=== PATIENT | male | born 1990 | race Caucasian/White ===

== ENCOUNTER 2016-12-29 09:28 | Emergency (ER) | payer MEDICAID, OTHER ==
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
[~2016-12-29 09:28] MED LIST: ATOR20TA PO; BENZ0.5T3 PO; CLOZ50TA PO; DOCU100T2 PO; FLUO20CA25 PO; HAL5 PO; LITH600C PO; PROP60CA8 PO
[2016-12-29 09:30] VITALS: BP 127/81; PULSE 66; RESP 20; O2SAT 100
[2016-12-29 09:40] VITALS: BP 127/81; PULSE 66; RESP 20; O2SAT 99
[2016-12-29 12:39] LABS: BASOPHILS % (AUTO) 0.2 % (0-3); EOSINOPHILS % (AUTO) 1.5 % (0-5); MONOCYTES % (AUTO) 7.2 % (4-12); Mean Corpuscular Hemoglobin 29.9 pg (27.0-35.0); Mean Corpuscular Volume 87.5 fL (81-100); Platelet Count 293 bil/L (150-400)
[2016-12-29] MEDS ORDERED: LORazepam 2 mg Tablet PO ONE (15:50)
[2016-12-29] MEDS ORDERED: Haloperidol 5 mg/mL Inj IVPUSH ONE (15:50)
[2016-12-29 18:06] VITALS: BP 133/85; PULSE 80; RESP 16; O2SAT 100
[2016-12-29] MEDS ORDERED: LITH300T2 PO (18:16)
[2016-12-29] MEDS ORDERED: BENZ1TAB7 PO (18:16)
[2016-12-29] MEDS ORDERED: CLOZ200T PO (18:16)
[2016-12-29] MEDS ORDERED: OMEG-38 PO (18:16)
[2016-12-29] MEDS ORDERED: PALI6TAB6 PO (18:16)
[2016-12-29] MEDS ORDERED: CLOZ100T6 PO (18:16)
[2016-12-29] MEDS ORDERED: LAMO200T2 PO (18:16)
== END 2016-12-29 21:20 | disposition other institution (70) ==
LOC: SED 09:28
DX: F29 Unspecified psychosis not due to a substance or known physiological condition (principal); F20.9 Schizophrenia, unspecified; F31.9 Bipolar disorder, unspecified; I10 Essential (primary) hypertension; F17.200 Nicotine dependence, unspecified, uncomplicated
CPT/HCPCS: 36415; 80053; 81002; 82075; 84443; 85025; 96372; 99284; J1630; J2060